=== PATIENT | female | born 1940 | race Caucasian/White ===

== ENCOUNTER 2017-11-28 08:24 | Day surgery (SDC) | payer MEDICARE, BC ==
[2017-11-28] MEDS ORDERED: PROPOFOL 10 MG/ML EMU IV ONE (09:32)
[2017-11-28 11:19] VITALS: BP 137/73; PULSE 60; RESP 18; TEMP 97.4; O2SAT 99
== END 2017-11-28 11:55 | disposition home or self-care (01) | DRG 951 ==
LOC: SURG 08:24
PROVIDERS: ATTEND Surgery
DX: Z12.11 Encounter for screening for malignant neoplasm of colon (principal); D12.4 Benign neoplasm of descending colon; K63.5 Polyp of colon
CPT/HCPCS: J2704